=== PATIENT | female | born 1995 | race Caucasian/White ===

== ENCOUNTER 2018-01-23 17:25 | Emergency (ER) | payer MEDICAID ==
[~2018-01-23] VITALS: Ht 170.2 cm; Wt 102.0 kg
[~2018-01-23 17:25] MED LIST: FERR1TAB25 PO; IBUP-779 PO; IRON18TA PO; MULT-1116 PO; PREN-88 PO
[2018-01-23 18:32] LABS: BASOPHILS % 1.1 % (0.0-2.0); EOSINOPHILS % 3.6 % (0.0-5.0); HEMATOCRIT. 37.5 % (36.0-48.0); HEMOGLOBIN. 12.4 g/dL (12.0-16.0); LYMPHOCYTES % 42.2 % (20.0-50.0); MEAN CORPUSCULAR HEMOGLOBIN 30.3 pg (28.0-32.0); MEAN CORPUSCULAR VOLUME 91.7 fL (81.0-99.0); MEAN PLATELET VOLUME 7.2 fl (7.4-10.4); MONOCYTES % 5.6 % (2.0-8.0); NEUTROPHILS % 47.5 % (40.0-76.0); PLATELET 359 x1000/uL (130-400); RED BLOOD CELL COUNT 4.09 mill/uL (4.2-5.4); RED CELL DISTRIBUTION WIDTH 12.4 % (11.6-14.6)
[2018-01-23 18:34] LABS: CLARITY URINE CLEAR (CLEAR); COLOR URINE YELLOW (YELLOW); KETONES URINE NEGATIVE (NEGATIVE); LEUKOCYTE ESTERASE URINE NEGATIVE (NEGATIVE); NITRITE URINE NEGATIVE (NEGATIVE); OCCULT BLOOD URINE NEGATIVE (NEGATIVE); PROTEIN URINE NEGATIVE (NEGATIVE); UROBILINOGEN URINE 0.2 E.U./dL (0.2-1.0)
[2018-01-23 18:35] LABS: CHLORIDE 104 mEq/L (98-107)
[2018-01-23 18:37] LABS: PROTHROMBIN TIME 10.5 sec (9.4-11.6)
[2018-01-23 20:03] VITALS: BP 116/74
== END 2018-01-23 22:02 | disposition left against medical advice (07) ==
LOC: ER 18:11
DX: R10.9 Unspecified abdominal pain (principal); R11.0 Nausea
CPT/HCPCS: 36415; 80053; 81003; 81025; 83690; 85025; 85610; 99284

== ENCOUNTER 2021-02-02 14:51 | Emergency (ER) | payer MEDICAID ==
[~2021-02-02] VITALS: Ht 175.3 cm; Wt 107.0 kg
[2021-02-02 16:03] VITALS: BP 132/96
== END 2021-02-02 16:18 | disposition home or self-care (01) ==
LOC: ER 14:51
DX: Z20.822 Contact with and (suspected) exposure to COVID-19 (principal)
CPT/HCPCS: 71045; 99283

== ENCOUNTER 2021-08-08 21:10 | Emergency (ER) | payer MEDICAID ==
[~2021-08-08] VITALS: Ht 175.3 cm; Wt 147.0 kg
[2021-08-09 00:13] VITALS: BP 129/86
== END 2021-08-09 00:15 | disposition home or self-care (01) ==
LOC: ER 21:10
DX: R55 Syncope and collapse (principal)
CPT/HCPCS: 93005; 99283

== ENCOUNTER 2022-02-05 14:41 | Emergency (ER) | payer MEDICAID ==
[~2022-02-05] VITALS: Ht 172.7 cm; Wt 100.0 kg
[2022-02-05] MEDS ORDERED: KETOROLAC 30MG/ML VIAL IV STA (15:37)
[2022-02-05] MEDS ORDERED: SODIUM CHLORIDE 0.9% 1,000 ML IV ONE (15:45)
[2022-02-05 16:22] LABS: CHLORIDE 107 mEq/L (98-107)
[2022-02-05 16:25] LABS: BASOPHILS % 0.5 % (0.0-2.0); EOSINOPHILS % 1.1 % (0.0-5.0); HEMATOCRIT. 36.4 % (36.0-48.0); LYMPHOCYTES % 30.1 % (20.0-50.0); MEAN CORPUSCULAR HEMOGLOBIN 28.5 pg (28.0-32.0); MEAN CORPUSCULAR VOLUME 86.7 fL (81.0-99.0); MEAN PLATELET VOLUME 7.3 fl (7.4-10.4); MONOCYTES % 4.7 % (2.0-8.0); NEUTROPHILS % 63.6 % (40.0-76.0); PLATELET 400 x1000/uL (130-400); RED CELL DISTRIBUTION WIDTH 13.6 % (11.6-14.6)
[2022-02-05 16:37] LABS: HCG SCREEN NEGATIVE
[2022-02-05 18:27] LABS: PARTIAL THROMBOPLASTIN TIME 27.6 sec (23.4-31.0); PROTHROMBIN TIME 10.5 sec (9.6-11.0)
[2022-02-05 20:17] VITALS: BP 133/89
== END 2022-02-05 20:18 | disposition home or self-care (01) ==
LOC: ER 14:41
DX: R55 Syncope and collapse (principal); R06.02 Shortness of breath; R42 Dizziness and giddiness; R51.9 Headache, unspecified
CPT/HCPCS: 36415; 70450; 71045; 71275; 80053; 83880; 84484; 84703; 85025; 85379; 85610; 85730; 93005; 96361; 96374; 99285; J1885; J7030

== ENCOUNTER 2022-02-20 14:46 | Emergency (ER) | payer MEDICAID ==
[~2022-02-20] VITALS: Ht 175.3 cm; Wt 110.0 kg
[2022-02-20] MEDS ORDERED: TETANUS, DIPHTHERIA, PERTUSSIS VAC/PF 0.5ML (>10YR OLD) IM ONE (15:30)
[2022-02-20] MEDS ORDERED: HYDROCODONE/ACETAMINOPHEN 5/325MG TABLET PO ONE (15:30)
[2022-02-20] MEDS ORDERED: LIDOCAINE HCL/EPINEPHRINE 1%-EPI 1:100,000 20 ML VIAL INFIL ONE (15:30)
[2022-02-20 16:19] VITALS: BP 164/94
[2022-02-20] MEDS ORDERED: HYDR-4001 MT ×2 (18:02→18:03)
[2022-02-20] MEDS ORDERED: IBUP-2029 MT (18:02)
== END 2022-02-20 18:37 | disposition home or self-care (01) ==
LOC: ER 14:58
DX: S81.012A Laceration without foreign body, left knee, initial encounter (principal); V09.9XXA Pedestrian injured in unspecified transport accident, initial encounter; Y93.89 Activity, other specified; Y92.89 Other specified places as the place of occurrence of the external cause; Y99.8 Other external cause status
CPT/HCPCS: 12002; 73030; 73700; 90471; 90715; 99284; L1830; J3490

== ENCOUNTER 2023-04-24 09:29 | Emergency (ER) | payer MEDICAID ==
[~2023-04-24] VITALS: Ht 175.3 cm; Wt 135.0 kg
[~2023-04-24 09:29] MED LIST changes: +HYDR-4001 MT; +IBUP-2029 MT
[2023-04-24 09:34] VITALS: O2SAT 98
[2023-04-24] MEDS ORDERED: KETOROLAC 30MG/ML VIAL IM ONE (10:00)
[2023-04-24] MEDS ORDERED: DEXAMETHASONE 10 MG/ML VIAL PO ONE (10:00)
[2023-04-24] MEDS ORDERED: AMOX1TAB16 MT (11:36)
[2023-04-24] MEDS ORDERED: NAPR-681 MT (11:38)
[2023-04-24 11:59] LABS: MONOTEST NEGATIVE (NEGATIVE)
[2023-04-24 12:58] VITALS: BP 135/84; PULSE 81; RESP 19; TEMP 98.5
== END 2023-04-24 12:59 | disposition home or self-care (01) ==
LOC: ER 09:29
DX: J02.0 Streptococcal pharyngitis (principal)
CPT/HCPCS: 81025; 87430; 86308; 96372; 99283; J1100; J1885; Z7610